=== PATIENT | female | born 1955 | race Caucasian/White ===

== ENCOUNTER 2018-02-14 05:30 | Day surgery (SDC) | payer MEDICARE, OTHER ==
[~2018-02-14] VITALS: Ht 154.9 cm; Wt 77.1 kg
[~2018-02-14 05:30] MED LIST: DOXYCYCLINE MO100 MG PO; FOLIC ACID1 MG PO; LETROZOLE2.5 MG PO; METHOTREXATE2.5 MG PO; NORCO 7.5-3251 EACH PO; SYNTHROID100 MCG PO; TRAZODONE HCL150 MG PO
--- NOTE | 2018-02-14 10:21 | NUR ---
02/14/18 1021 Sandra Bynum 0947 PT ARRIVED WITH ORAL AIRWAY IN PLACE. PT NON AROURSABLE AND MINIMAL JAW THRUST NEEDED TO MAINTAIN AIRWAY. 0956 AIRWAY REMOVED, PT FOLLOWED COMMANDS TO OPEN MOUTH AND DEEP BREATH. 1000 PT OPENED HER EYES AND REPORTED PAIN IN HER FOOT OF 8/10, PAIN MEDICAITON GIVEN PER EMAR. R-RAY AT BEDSIDE. 1011 O2 DECREASED TO 8L VIA MASK, O2 SAT 95%. 1017 PT ASLEEP AND SNORING. ICE IN PLACE ON LEFT FOOT.
--- NOTE | 2018-03-20 14:35 | OR ---
[facility] [address] [place] [place], [place] [address] Signed DATE OF OPERATION: 02/14/2018 SURGEON: Du Juan DPM PREOPERATIVE DIAGNOSIS: Left foot bunionectomy. POSTOPERATIVE DIAGNOSIS: Left foot bunionectomy. PROCEDURE: Lap[place]us bunionectomy, left foot. OPERATIONS DIRECTOR: Cody Perry DPM NURSE SUPERVISOR CONDITIONING YARD: Blair Castro CRNA. ANESTHESIA: Regional block with general and also assisted with local consisting of 18 mL of 0.5% ropivacaine and 2% lidocaine plain in a 1:1 mixture. HEMOSTASIS: With an ankle tourniquet. ESTIMATED BLOOD LOSS: Less than 5 mL or minimal. MATERIALS UTILIZED: An Orthomax locking plate with 4 locking screws, 3-0 Vicryl, 4-0 Vicryl, and surgical toya. Postoperative injection consisting of 5 mL of 0.5% ropivacaine and 1 mL of dexamethasone phosphate. PROCEDURE IN DETAIL: The patient was brought into the operating room and placed upon the operating table in the supine position. Regional popliteal block was performed prior to entering into the OR. IV sedation and local anesthesia were administered about the patient's left ankle Electronically Signed By: DU JUAN DPM 03/20/18 1435 PATIENT NAME: RODNEY LAGUERRE OPERATIVE REPORT DATE OF : 51 REPORT #: [id number] PHYSICIAN: DU JUAN DPM PCP: YEN FLANAGAN MD REPORT IS CONFIDENTIAL AND NOT TO BE RELEASED WITHOUT AUTHORIZATION [facility] [address] [facility] [place] [address] Signed region. The left foot was then scrubbed, prepped, and draped in the usual sterile technique. An Esmarch bandage was then utilized to exsanguinate the patient's left foot and the left foot wrapped around the ankle to act as a tourniquet. Attention was then directed to the dorsal aspect of the first metatarsophalangeal joint where approximately a 5 cm linear incision was performed, both parallel and medial to the tendon of extensor hallucis longus. Careful dissection down through the subcutaneous tissue was performed with care being taken to identify and retract the vital neurovascular structures. Bleeders were cauterized and ligated as necessary. Dissection continued down to level of the joint capsule. A #64 blade was utilized to perform a linear capsulotomy and the joint capsule was reflected off the medial portion of the first metatarsal head, thus exposing the articular surface. A prominent dorsal medial eminence was noted with some wear and tear noted on the articular cartilage including significant wear pattern present on the plantar medial first metatarsal head. This occupied only approximately 15% of the articular surface. Sagittal saw was then utilized to reduce the medial eminence. Coloration was within normal limits and the bone density was within normal limits. Attention was then redirected to the first intermetatarsal space region where both the sharp and blunt dissection was continued down to level of the fibular sesamoid ligament and the conjoint tendon of the adductor hallucis. Utilizing a #64 blade, the sesamoidal ligament was freed just underneath the metatarsal head and utilizing the [place], the fibular sesamoid demonstrated the ability to move both medial and lateral under the first metatarsal head. The #64 blade was also utilized to release the conjoint tendon as it attached into the base of the proximal phalanx. This significantly reduced the soft tissue contractures affecting the digit. Attention was then directed to the extensor tendons. The extensor tendon brevis was identified and this was also resected utilizing a tenotomy. Extensor hallucis was left intact and lengthened. Joint capsule on the medial aspect of the first metatarsal head was then also reduced utilizing sharp instrumentation using a #64 blade and a tenotomy to reduce fibrosis of this capsule area. A portion of this fibrosis was sent off to pathology for microscopic evaluation. Attention was then directed more proximal. Skin incision was extended up into the first cuneiform. Careful dissection was performed down to the level of the first metatarsocuneiform joint region and the ligament surrounding this joint capsule. A #64 blade was utilized to release ligaments from the dorsal aspect of this joint and also on the medial aspect. A joint distractor was then placed utilizing two K-wires, one in the cuneiform and one in the metatarsal base. Joint was distracted. Sagittal saw was utilized to remove articular surfaces from the adjacent aspects of bone. Curette was also utilized and a rongeur to shape the base of the first metatarsal and the distal aspect of the first cuneiform to accommodate the corrective positioning. The area was then flushed with sterile normal saline. Fenestration of the adjacent aspects of bone was performed with a 1.25 inch K-wire. The joint distractor was removed. The first metatarsal was then reduced and put into a more corrected rectus position. K-wire was then driven from the dorsal base of the first metatarsal into the first cuneiform to act as temporary fixation. Two more K-wires were inserted from the Electronically Signed By: DU JUAN DPM 03/20/18 1435 PATIENT NAME: RODNEY LAGUERRE OPERATIVE REPORT DATE OF : 51 REPORT #: [id number] PHYSICIAN: DU JUAN DPM PCP: YEN FLANAGAN MD REPORT IS CONFIDENTIAL AND NOT TO BE RELEASED WITHOUT AUTHORIZATION [facility] [address] [place], [place] [address] Signed metatarsal head and neck region into the second and third metatarsals to act as temporary fixations. Next utilizing intraoperative fluoroscopy to verify positioning of hardware, a locking plate was then positioned following standard AO fixation techniques. Upon completion of the placement, the first metatarsal was well maintained in a corrected position. Also all screws had good finger tightness in all five screws. A compression screw was inserted from the first metatarsal base through the first cuneiform and into the second cuneiform. Positioning again was also verified via fluoroscopy. The area was then flushed with sterile normal saline. Joint capsule and deep soft tissue were closed utilizing 3-0 Vicryl. Subcutaneous tissue was closed utilizing 4-0 Vicryl and the skin was reapproximated and coapted utilizing surgical toya. Postoperative injection was then performed around the first metatarsocuneiform regions. Dressings were then applied consisting of Mepilex, foam dressing, fluff gauze, cast padding, and Coban. The ankle tourniquet was then removed and prompt hyperemic response was noted to all digits of the patient's left foot. The patient had tolerated both the procedure and the anesthesia well. Following the period of postoperative monitoring, the patient was discharged to home with both written and oral instructions. JEWEL Lay/MODL /[id number] Copies: ~ Electronically Signed By: DU JUAN DPM 03/20/18 1435 PATIENT NAME: KARIEJAYLONRODNEY OPERATIVE REPORT DATE OF : 51 REPORT #: [id number] PHYSICIAN: DU JUAN DPM PCP: YEN FLANAGAN MD REPORT IS CONFIDENTIAL AND NOT TO BE RELEASED WITHOUT AUTHORIZATION
== END 2018-02-14 11:23 | disposition home or self-care (01) ==
LOC: DS 05:30 → OPS 05:30 → DS 06:45 → OPS 06:45
PROVIDERS: Podiatrist Foot & Ankle Surgery
PROC: 0SGL04Z Fusion of Left Tarsometatarsal Joint with Internal Fixation Device, Open Approach (ICD-10-PCS; principal; 2018-02-14 06:45)
DX: M21.612 Bunion of left foot (principal); M20.11 Hallux valgus (acquired), right foot; M20.12 Hallux valgus (acquired), left foot; Z79.2 Long term (current) use of antibiotics; Z88.2 Allergy status to sulfonamides; Z87.891 Personal history of nicotine dependence; Z79.899 Other long term (current) drug therapy
CPT/HCPCS: 01480; 62322; 64445; 73630; 76942; 88305; C1713; C1769; J0690; J0735; J1100; J1885; J2250; J2405; J2704; J2765; J2795; J3010; J7120